=== PATIENT | male | born 1940 | race Caucasian/White ===

== ENCOUNTER → 2016-05-25 | Day surgery (SDC) | payer MEDICARE, BC ==
--- NOTE | 2016-05-24 18:18 | Pre-op HX & Phy Repo 2 SIG ---
DATE OF ADMISSION: 05/25/2016 DATE OF SURGERY: 05/25/2016. 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 PROCEDURES TO BE PERFORMED: 1. Pars plana vitrectomy. 2. Injection of intravitreal antibiotics. 3. Intra-ocular cultures. BRIEF NOTE: This is a first [place] admission for tis patient who is a very nice 75-year-old gentleman, who complained of tearing in the right eye beginning a month ago and five days ago with significant pain and decreased vision. He saw corneal specialist, who diagnosed a corneal ulcer inferiorly in the right eye with some extension into the anterior chamber. He has been treated with topical antibiotics, but is showing what appears to be progression. He is admitted for culture of intravitreal contents and injection of intravitreal antibiotics. His past ocular history is remarkable for Lasik surgery performed in both eyes some time ago. He more recently had a cataract operation on the left. PAST MEDICAL HISTORY: Remarkable for esophageal cancer that was diagnosed over the last month. He has been on courses of chemotherapy and is facing radiation. SOCIAL HISTORY: He is a heavy tobacco smoker. Never drink. MEDICATIONS: Current medications include a fortified gentamicin and vancomycin drops. He is also on Tylenol with codeine for pain as well as Toradol and lorazepam. ALLERGIES: He has allergies to iodine contrast. PHYSICAL EXAMINATION: EYES: Best vision at the time of admission was hand motions at 4 feet in the right eye and 20/40 in the left with pressure in the right of 23. The anterior segment showed significant chemosis. There is an inferior corneal ulcer, which appeared to originate along the Lasik wound at 6 o'clock. Some extension of fibrin and debris into the anterior chamber was seen. The pupil dilated only poorly. There was some cells in the anterior chamber. The left anterior segment was benign. Posterior chamber lens was seen. The fundus on the right showed a reasonable red reflex, but details could not be seen. The left fundus, through a slightly dilated pupil showed normal-appearing posterior segment and optic nerve. LABORATORY AND DIAGNOSTIC DATA: An ultrasound done at this visit revealed mobile vitreous debris associated with a posterior vitreous separation and possible extension of inflammation. ASSESSMENT: 1. Corneal ulcer, right eye with possible posterior extension. 2. Rule out endophthalmitis right eye. 3. Cataract to right eye. 4. Pseudophakia left eye. PLAN: The plan is to perform a pars plana vitrectomy with cultures and injection of intravitreal antibiotics. The risks and benefits of surgery gone over the patient with potential for inability to stop the infection, the need for additional injections, and remote possibility of loss of the eye. The risk of anesthesia was discussed. The patient understands and consents to the surgery to be performed on tomorrow morning. Pablito Sharma M.D. DR: KUMAR JOB#: [id number] CC: KARTHIK
[2016-05-25] VITALS (7 sets, daily range): BP systolic 102–129; BP diastolic 65–83
[~2016-05-25] VITALS: Ht 182.9 cm; Wt 90.7 kg
[~2016-05-25] MED LIST: ALLOPURINOL300 M1 ORAL; BSS 15ml BTL ONE; BSS 500ml btl ONE; Bupivacaine 0.75% 30ml vial INJ ONE; Cyclopentolate 1% Opth Sol RIGHT EYE SCH; Dexamethasone 4mg/ml vial ONE; EPINEPHrine 1mg/1ml Amp ONE; Flurbiprofen 0.03% Opth Sol 2.5ml RIGHT EYE SCH; Gatifloxacin Opth Solution 0.5% RIGHT EYE SCH; Kenalog-10 5ml Inj ONE; Kenalog-40 1ml Vial ONE; LR 1000ml 1,000 ML IVLG SCH; LR 1000ml ONE; Lidocaine 2% MPF 5ml Vial INJ ONE; Maxitrol Opth Oint 3.5gm ONE; Midazolam 2mg/2ml Inj ONE; NS Irrig 1000ml ONE; Norco 5mg/325mg tab ORAL PRN; Phenylephrine 2.5% Op Soln RIGHT EYE SCH; Povidone-Iodine 5% opth solution ONE; Pred Forte 1% Opth Susp 1ml RIGHT EYE ONE; Propofol 10mg/ml 20ml IV ONE; SIMVASTATIN10 MG ORAL; Sodium Hyaluronate 10 mg/ml 0.85ml ONE; Sterile Water Irrig 1000ml IRRIG ONE; Tetracaine 0.5% Opth Soln ONE; Vancomycin Intravitreal Inj RIGHT EYE ONE; fentaNYL 100 mcg/2 mL IV ONE; fentaNYL 100 mcg/2 mL IV PRN
--- NOTE | 2016-05-25 09:01 | Pre-Procedure Note/Attestation ---
Pre-Procedure Note/Attestation Complete Prior to Procedure Planned Procedure: right Procedure Narrative: PPV, vitreous tap with cultures, injection of intravitreal antibiotics R eye Indications for Procedure Pre-Operative Diagnosis: Suspected bacterial endophthalmitis R eye Attestation I attest that I discussed the nature of the procedure; its benefits; risks and complications; and alternatives (and the risks and benefits of such alternatives ), prior to the procedure, with the patient (or the patient's legal customer solutions representative). I attest that, if there was a reasonable possibility of needing a blood transfusion, the patient (or the patient's legal customer solutions representative) was given the [facility] standardized written summary, pursuant to the Dennis H[employer]ctor Blood Safety Act ([place] Health and Safety Code # 1645, as amended). I attest that I re-evaluated the patient just prior to the surgery and that there has been no change in the patient's H&P, except as documented below: PIERO GLASS May 25, 2016 09:01
[2016-05-25 09:35] LABS: BASOPHILS % (AUTO) 0.8 % (0.0-2.0); EOSINOPHILS % (AUTO) 0.1 % (0.0-3.0); LYMPHOCYTES % (AUTO) 13.5 % (20.0-45.0); MEAN CORPUSCULAR HEMOGLOBIN 26.5 PG (27.0-31.0); MEAN CORPUSCULAR VOLUME 83 FL (80-99); MEAN PLATELET VOLUME 6.5 FL (6.5-10.1); MONOCYTES % (AUTO) 8.7 % (1.0-10.0); NEUTROPHILS % (AUTO) 76.8 % (45.0-75.0); PLATELET COUNT 167 K/UL (150-450); RED BLOOD COUNT 4.79 M/UL (4.70-6.10); RED CELL DISTRIBUTION WIDTH 20.4 % (11.6-14.8); WHITE BLOOD COUNT 8.3 K/UL (4.8-10.8)
--- NOTE | 2016-05-25 09:53 | Anethesia Preoperative Eval ---
Anesthesia Pre-op PMH/ROS General Date of Evaluation: May 25, 2016 Time of Evaluation: 09:08 Anesthesiologist: Reginald ASA Score: ASA 3 Mallampati Score Class I : Soft palate, uvula, fauces, pillars visible Class II: Soft palate, uvula, fauces visible Class III: Soft palate, base of uvula visible Class IV: Only hard plate visible Mallampati Classification: Class II Surgeon: Edith Diagnosis: R eye enhdophtalmitis Surgical Procedure: R eye PPV antibiotic injection Anesthesia History: none Social History: current smoker Family History: no anesthesia problems Allergies: Coded Allergies: IODINE (Verified Allergy, Unknown, 01/05/09) Uncoded Allergies: CONTRAST (Allergy, Unknown, 01/05/09) Medications: see eMAR Past Medical History Cardiovascular: Reports: HTN, Denies: CAD, CT, arrhythmia, other, valve dz Pulmonary: 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, Denies: COPD, asthma, other Gastrointestinal/Genitourinary: Reports: GERD, other - Esophagial CA on chemo, Denies: CRI, ESRD Neurologic/Psychiatric: Reports: depression/anxiety, Denies: CVA, TIA, dementia, other Endocrine: Denies: DM, hypothyroidism, other, steroids HEENT: Reports: cataract (L), Denies: [place] (L), [place] (R), cataract (R), glaucoma, other Hematology/Immune: Reports: anemia - mild, Denies: DVT, bleeding disorder, other Musculoskeletal/Integumentary: Reports: DJD PMH Narrative: as above PSxH Narrative: R hip replacement, L eye cataract and cornea Anesthesia Pre-op Phys. Exam Physician Exam Last Vital Signs Date Time Temp Pulse Resp B/P Pulse Ox O2 Delivery O2 Flow Rate FiO2 05/25/16 08:49 98.4 67 18 129/83 96 Room Air Constitutional: NAD Neurologic: CN 2-12 intact Cardiovascular: RRR Respiratory: CTA Gastrointestinal: S/NT/ND Airway Exam Mallampati Score: Class II MO: limited Neck: stiff ROM: limited Teeth: missing Dentures: no lower, no upper Anesthesia Pre-op A/P Labs Hematology Test 05/25/16 09:00 White Blood Count Pending Red Blood Count Pending Hemoglobin Pending Hematocrit Pending Mean Corpuscular Volume Pending Mean Corpuscular Hemoglobin Pending Mean Corpuscular Hemoglobin Concent Pending Red Cell Distribution Width Pending Platelet Count Pending Mean Platelet Volume Pending Neutrophils (%) (Auto) Pending Lymphocytes (%) (Auto) Pending Monocytes (%) (Auto) Pending Eosinophils (%) (Auto) Pending Basophils (%) (Auto) Pending Coagulation Test 05/25/16 09:00 Prothrombin Time Pending Prothromb Time International Ratio Pending Activated Partial Thromboplast Time Pending Chemistry Test 05/25/16 09:00 Sodium Level Pending Potassium Level Pending Chloride Level Pending Carbon Dioxide Level Pending Blood Urea Nitrogen Pending Creatinine Pending Estimat Glomerular Filtration Rate Pending Glucose Level Pending Calcium Level Pending Studies Pre-op Studies: EKG - SR Risk Assessment & Plan Assessment: ASA 3 Plan: MAC with retrobulbar block Status Change Before Surgery: No Pre-Antibiotics Drug: none SHARITA SINGER M.D. May 25, 2016 09:53
[2016-05-25 09:55] LABS: ANION GAP 15 (5-15); CALCIUM 9.2 mg/dL (8.6-10.2); CARBON DIOXIDE 24 mEQ/L (20-30); CHLORIDE 99 mEQ/L (98-107); HEMOLYSIS 4; SODIUM 138 mEQ/L (135-145)
[2016-05-25 09:57] LABS: INR 1.1 (0.9-1.1)
--- NOTE | 2016-05-25 10:10 | Immediate Post-Op Evaluation ---
Immediate Post-Op Evalulation Immediate Post-Op Evalulation Procedure: R eye PPV antibiotic injection Date of Evaluation: May 25, 2016 Time of Evaluation: 10:09 IV Fluids: 200 Blood Products: none Estimated Blood Loss: min Urinary Output: none Blood Pressure Systolic: 109 Blood Pressure Diastolic: 77 Pulse Rate: 62 Respiratory Rate: 20 O2 Sat by Pulse Oximetry: 99 Temperature (Fahrenheit): 97.2 Pain Score (1-10): 1 Nausea: No Vomiting: No Complications none Patient Status: awake, patent, none Hydration Status: adequate SHARITA SINGER M.D. May 25, 2016 10:10
--- NOTE | 2016-05-25 10:14 | Brief Operative Note ---
Immediate Post Operative Note Operative Note Chief Complaint: Blurred vison R eye with pain Pre-op Diagnosis: Suspected bacterial endophthalmitis R eye Procedure: PPV with vitreous tap, cultures, injection of antibiotics (vancomycin 1mg, Fortaz 2.25mg) Kenalog 1.5mg R eye Post-op Diagnosis: same as pre-op Surgeon: lelo Voltage Inspector: ana Anesthesiologist: vladimir Anesthesia: MAC Specimen: yes Complications: none Estimated Blood Loss: none Drains: none Implant(s) used?: No PIERO GLASS May 25, 2016 10:14
--- NOTE | 2016-05-25 13:19 | 48 Hour Post Anesthesia Eval ---
Post Anesthesia Evaluation Procedure: R eye PPV antibiotic injection Date of Evaluation: May 25, 2016 Time of Evaluation: 13:18 Blood Pressure Systolic: 108 0: 65 Pulse Rate: 62 Respiratory Rate: 20 Temperature (Fahrenheit): 97.8 O2 Sat by Pulse Oximetry: 99 Airway: patent Nausea: No Vomiting: No Pain Intensity: 2 Hydration Status: adequate Cardiopulmonary Status: stable Mental Status/LOC: patient returned to baseline Follow-up Care/Observations: n/a Post-Anesthesia Complications: none Follow-up care needed: ready to discharge SHARITA SINGER M.D. May 25, 2016 13:19
--- NOTE | 2016-05-25 19:48 | Operative Note - Dictated ---
DATE OF OPERATION: 05/25/2016 PREOPERATIVE DIAGNOSIS: Suspected endophthalmitis, right eye. POSTOPERATIVE DIAGNOSIS: Suspected endophthalmitis, right eye. PROCEDURES: 1. Pars plana vitrectomy with vitreous tap and cultures. 2. Intravitreal antibiotic injections. 3. Intravitreal steroid injection, right eye. SURGEON: Pablito Sharma M.D. GUN PROFILER: Joesph North M.D. ANESTHESIA: Local sedation. ANESTHESIOLOGIST: Boo Montelongo M.D. JUSTIFICATION FOR SURGERY: This 75-year-old gentleman with a recent history of chemotherapy for esophageal cancer, developed pain and visual blurring in the right eye and was found to have a corneal ulcer. Despite treatment, there was noted to be clouding and debris in the vitreous cavity and there is suspicion of extension of the infection into the vitreous. BRIEF NOTE: The patient was brought to the operating room, placed on operating room table in supine position. Before the procedure was initiated Dr. North, using the surgical microscope, obtained additional cultures of the corneal ulcer. At this point, a time-out was performed and agreed upon by the staff and after initial monitoring was secured by Dr. Montelongo, retrobulbar and Van Lint blocks given standard way. When the blocks taken effect, he was prepped and draped in normal manner. A lid speculum was introduced into the right eye. Using a 23-gauge trocar system, cannulas were placed in all except infranasal quadrant, infusion secured inferotemporally. The light pipe was inserted and the eye was examined with the wide-angle viewing system. There was extensive fibrin and debris in the anterior chamber as well as what appeared to be debris in cells in the posterior chamber. A limited central core vitrectomy was performed under direct visualization, removing roughly 0.75 mL of vitreous and debris. The tubing was broken down and this material was suctioned into a tuberculin syringe. Fungal, aerobic, and anaerobic cultures were sent and the remaining material in the syringe was also submitted to pathology for immediate Gram-stain and additional cultures as needed. Once this maneuver was completed, better visualization of the posterior segment was seen. The retina appeared all attached and there was no evidence of discrete infectious lesions on the retina itself. The supranasal cannula was then removed and infusion discontinued. Through superotemporal cannula 1 mg of vancomycin, 2.25 mg of Fortaz, and 1.5 mg of Kenalog were injected. The pressure was normalized with paracentesis at the 12 o'clock position and the remaining cannulas were removed. The wounds were noted to be self-sealing and the eye was left at a tension normal to soft. Subconjunctival gentamicin was then injected and atropine drops and Maxitrol ointment instilled. The eye was patched and shielded and the patient taken to recovery in excellent condition. There were no complications. Pablito Sharma M.D. DR: KUMAR JOB#: [id number] CC:
== END | disposition home or self-care (01) ==
LOC: SUR 05-24 16:09
DX: H16.001 Unspecified corneal ulcer, right eye (principal); H26.9 Unspecified cataract; Z96.1 Presence of intraocular lens; C15.9 Malignant neoplasm of esophagus, unspecified; I10 Essential (primary) hypertension; E78.5 Hyperlipidemia, unspecified; G47.33 Obstructive sleep apnea (adult) (pediatric); K21.9 Gastro-esophageal reflux disease without esophagitis; N40.0 Benign prostatic hyperplasia without lower urinary tract symptoms; R97.20 Elevated prostate specific antigen [PSA]; Z79.899 Other long term (current) drug therapy; F32.9 Major depressive disorder, single episode, unspecified; F41.9 Anxiety disorder, unspecified; D64.9 Anemia, unspecified; M16.0 Bilateral primary osteoarthritis of hip; M17.0 Bilateral primary osteoarthritis of knee; Z96.641 Presence of right artificial hip joint; F17.200 Nicotine dependence, unspecified, uncomplicated; M10.9 Gout, unspecified; Z91.041 Radiographic dye allergy status
CPT/HCPCS: 36415; 67036; 80048; 85025; 85610; 85730; 87070; 87075; 87205; J0171; J2250; J2704; J3010; J3301; J3470; J3490; J7120; 94003; 94150